=== PATIENT | male | born 1935 | race Caucasian/White ===

== ENCOUNTER 2019-07-17 15:24 | Inpatient (IN) ==
[2019-07-17] MEDS ORDERED: ENOXAPARIN 30 MG/0.3 ML SYRINGE SUBCUT SCH (16:30)
[2019-07-17] MEDS ORDERED: PROMETHAZINE 25 MG TABLET PO PRN (16:30)
[2019-07-17] MEDS ORDERED: ZALEPLON 5 MG CAPSULE PO PRN (16:30)
[2019-07-17] MEDS ORDERED: guaiFENesin/DM ER 600-30 MG TABLET PO PRN (16:30)
[2019-07-17] MEDS ORDERED: DOCUSATE SODIUM 100 MG CAPSULE PO PRN (16:30)
[2019-07-17] MEDS ORDERED: ACETAMINOPHEN 325 MG TABLET PO PRN (16:30)
[2019-07-17] MEDS ORDERED: LACTULOSE 20 GM/30 ML UDCUP PO PRN (16:30)
[2019-07-17] MEDS ORDERED: POTASSIUM CHLORIDE 20 MEQ TABLET PO PRN (16:30)
[2019-07-17] MEDS ORDERED: diphenhydrAMINE CAP 25 MG CAPSULE PO PRN (16:30)
[2019-07-17] MEDS ORDERED: MAGNESIUM SULF RIDER 2 GM in PREMIX 1 EACH IV PRN (16:30)
[2019-07-17] MEDS ORDERED: ONDANSETRON 4 MG/2 ML VIAL IV PRN (16:30)
[2019-07-17] MEDS ORDERED: MAGNESIUM SULF RIDER 4 GM in PREMIX 1 EACH IV PRN (16:30)
[2019-07-17] MEDS ORDERED: DIGOXIN 0.5 MG/2 ML AMP IV ONE (17:12)
[2019-07-17] MEDS ORDERED: METOPROLOL TARTRATE 5 MG/5 ML VIAL IV ONE (17:25)
[2019-07-17] MEDS ORDERED: SODIUM CHLORIDE 0.9% 1,000 ML IV SCH (17:30)
[2019-07-17 17:53] LABS: Basophils % 0.6 % (0.0-0.8); Eosinophils # 0.1 10*3/uL (0.0-0.87); Eosinophils % 1.9 % (0.00-10.9); Hematocrit 32.3 VOL% (42.0-52.0); Hemoglobin 10.6 GM/DL (14.0-18.0); Immature Granulocytes % 0.6 %; Immature Granulocytes Absolute 0.03 #; Lymphocytes # 1.6 10*3/uL (1.4-4.0); Lymphocytes % 33.1 % (21.2-54.2); Mean Corpuscular HGB Conc 32.8 GM/DL (32-36); Mean Corpuscular Volume 100.9 FL (87-102); Mean Platelet Volume 13.6 FL (9.6-12.0); Monocytes % 12.1 % (1.7-12.7); Neutrophils % 51.7 % (38.7-73.9); Platelet Count 93 T/CUMM (130-400); Red Cell Distribution Width 13.3 % (9.3-17.3); White Blood Count 4.9 T/CUMM (4-12)
[2019-07-17 17:58] LABS: Alanine Aminotransferase < 9 U/L (16-61); Albumin 3.4 G/DL (3.4-5.0); Alkaline Phosphatase 42 U/L (45-117); Aspartate Amino Transferase 11 U/L (0-37); Bilirubin,Total < 0.39 MG/DL (0.2-1.0); Blood Urea Nitrogen 29 MG/DL (7-18); Estimated Glom Filtration Rate 63 ML/MIN; Glucose 94 MG/DL (74-106); HDL Cholesterol 30 MG/DL (40-60); Osmolality,Calculated 291.8 MOS/KG (273-304); Risk Ratio 3.43; Thyroid Stimulating Hormone 0.352 uIU/ml (0.358-3.74); Total Protein 6.7 G/DL (6.4-8.3); Triglycerides 67 MG/DL (2-150); VLDL CHOLESTEROL 13.4 MG/DL
[2019-07-17 18:11] LABS: Troponin I 0.018 NG/ML (0.00-0.045)
[2019-07-17] MEDS ORDERED: PNEUMOCOCCAL VACCINE (13 VALENT) 0.5 ML SYRINGE IM ONE (18:29)
[2019-07-17] MEDS: POTASSIUM CHLORIDE 10 MEQ TABLET PO SCH (19:31)
[2019-07-17] MEDS: FINASTERIDE 5 MG TABLET PO SCH (22:15)
[2019-07-17] MEDS: TAMSULOSIN 0.4 MG CAPSULE PO SCH (22:15)
[2019-07-17] MEDS: ASPIRIN 325 MG TABLET PO SCH (22:15)
[2019-07-17] MEDS: ENOXAPARIN 40 MG/0.4 ML SYRINGE SUBCUT SCH (22:15)
[2019-07-17] MEDS: GEMFIBROZIL 600 MG TABLET PO SCH (22:15)
[2019-07-17] MEDS: CHOLECALCIFEROL 5,000 UNIT TABLET PO SCH (22:15)
[2019-07-18] MEDS: SOTALOL 80 MG TABLET PO SCH ×3 (00:44→20:40)
[2019-07-18] MEDS: METOPROLOL TARTRATE 25 MG TABLET PO SCH ×3 (00:44→20:41)
[2019-07-18] MEDS: ALBUTEROL/IPRATROPIUM 3 ML NEB RESP TX SCH ×4 (00:53→18:58)
[2019-07-18 04:06] LABS: Basophils % 0.7 % (0.0-0.8); Eosinophils # 0.2 10*3/uL (0.0-0.87); Eosinophils % 3.9 % (0.00-10.9); Hematocrit 29.6 VOL% (42.0-52.0); Hemoglobin 9.7 GM/DL (14.0-18.0); Immature Granulocytes % 0.5 %; Immature Granulocytes Absolute 0.02 #; Lymphocytes # 1.6 10*3/uL (1.4-4.0); Lymphocytes % 37.8 % (21.2-54.2); Mean Corpuscular HGB Conc 32.8 GM/DL (32-36); Mean Platelet Volume 12.9 FL (9.6-12.0); Monocytes % 13.2 % (1.7-12.7); Neutrophils % 43.9 % (38.7-73.9); Red Blood Count 2.96 MC/CUMM (3.8-5.5); Red Cell Distribution Width 13.1 % (9.3-17.3); White Blood Count 4.3 T/CUMM (4-12)
[2019-07-18 04:08] LABS: Platelet Count 93 T/CUMM (130-400)
[2019-07-18 04:20] LABS: Calcium 8.6 MG/DL (8.5-10.1)
[2019-07-18 05:03] LABS: Hypochromasia 1+; Ovalocytes Few
[2019-07-18 05:04] LABS: Acanthocytes Few; Microcytosis 1+; Target Cells Slight
[2019-07-18 05:05] LABS: Platelet Estimate Decreased
[2019-07-18] MEDS: LEVOTHYROXINE 75 MCG TABLET PO SCH (06:27)
[2019-07-18] MEDS ORDERED: FUROSEMIDE 20 MG TABLET PO SCH (09:00)
[2019-07-18] MEDS: PANTOPRAZOLE 40 MG TABLET PO SCH (09:05)
[2019-07-18] MEDS: GEMFIBROZIL 600 MG TABLET PO SCH ×2 (09:05→20:41)
[2019-07-18] MEDS: FUROSEMIDE 40 MG/4 ML VIAL IV SCH (09:05)
[2019-07-18] MEDS: POTASSIUM CHLORIDE 10 MEQ TABLET PO SCH (09:05)
[2019-07-18] MEDS: MENTHOL/ZINC OXIDE OINT 71 GM JAR TOP SCH ×2 (13:42→20:42)
[2019-07-18] MEDS ORDERED: MAGNESIUM HYDROXIDE SUSP 30 ML UDCUP PO PRN (15:12)
[2019-07-18] MEDS: CHOLECALCIFEROL 5,000 UNIT TABLET PO SCH (20:40)
[2019-07-18] MEDS: TAMSULOSIN 0.4 MG CAPSULE PO SCH (20:40)
[2019-07-18] MEDS: FINASTERIDE 5 MG TABLET PO SCH (20:40)
[2019-07-18] MEDS: ASPIRIN 325 MG TABLET PO SCH (20:40)
[2019-07-18] MEDS: ENOXAPARIN 40 MG/0.4 ML SYRINGE SUBCUT SCH (20:41)
[2019-07-19] MEDS: ALBUTEROL/IPRATROPIUM 3 ML NEB RESP TX SCH ×4 (00:16→19:59)
[2019-07-19 05:03] LABS: Calcium 8.8 MG/DL (8.5-10.1); Osmolality,Calculated 289.1 MOS/KG (273-304)
[2019-07-19] MEDS: LEVOTHYROXINE 75 MCG TABLET PO SCH (06:20)
[2019-07-19] MEDS ORDERED: ASPIRIN CHEW 81 MG TABLET PO SCH (08:54)
[2019-07-19] MEDS ORDERED: POTASSIUM CHLORIDE 20 MEQ TABLET PO ONE (08:59)
[2019-07-19] MEDS: PANTOPRAZOLE 40 MG TABLET PO SCH (09:43)
[2019-07-19] MEDS: APIXABAN 2.5 MG TABLET PO SCH ×2 (09:43→20:35)
[2019-07-19] MEDS: GEMFIBROZIL 600 MG TABLET PO SCH ×2 (09:43→20:35)
[2019-07-19] MEDS: METOPROLOL TARTRATE 25 MG TABLET PO SCH ×2 (09:43→20:35)
[2019-07-19] MEDS: MENTHOL/ZINC OXIDE OINT 71 GM JAR TOP SCH ×2 (09:44→20:36)
[2019-07-19] MEDS: FUROSEMIDE 40 MG/4 ML VIAL IV SCH (09:44)
[2019-07-19] MEDS: SOTALOL 80 MG TABLET PO SCH ×2 (09:44→20:34)
[2019-07-19] MEDS: LISINOPRIL 2.5 MG TABLET PO SCH ×2 (09:49→20:34)
[2019-07-19] MEDS: POTASSIUM CHLORIDE 10 MEQ TABLET PO SCH (12:05)
[2019-07-19] MEDS: FINASTERIDE 5 MG TABLET PO SCH (20:34)
[2019-07-19] MEDS: CHOLECALCIFEROL 5,000 UNIT TABLET PO SCH (20:35)
[2019-07-19] MEDS: TAMSULOSIN 0.4 MG CAPSULE PO SCH (20:35)
[2019-07-20] MEDS: ALBUTEROL/IPRATROPIUM 3 ML NEB RESP TX SCH ×2 (00:21→08:00)
[2019-07-20 03:56] LABS: Apearance,Urine CLEAR (Clear); Bilirubin,Urine Negative (Negative); Blood, Urine Negative (Negative); Glucose,Urine (UA) Negative (Negative); Hyaline Casts,Urine 7 /LPF (0-3); Ketones,Urine Negative (Negative); Mucus,Urine Occasional /LPF (Occasional); Nitrite,Urine Negative (Negative); Protein,Urine Negative; RBC,Urine 1 /HPF (0-4); Squamous Epithelial Cell,Urine Occasional /HPF (0-10); Urine Color Yellow (Yellow); Urine Specific Gravity 1.011 (1.001-1.035); Urine Urobilinogen < 2.0 EU/DL (0.2-1.0); WBC,Urine 1 /HPF (0-6)
[2019-07-20 06:03] LABS: Osmolality,Calculated 292.1 MOS/KG (273-304)
[2019-07-20] MEDS: LEVOTHYROXINE 75 MCG TABLET PO SCH (06:31)
[2019-07-20] MEDS: GEMFIBROZIL 600 MG TABLET PO SCH (09:30)
[2019-07-20] MEDS: SOTALOL 80 MG TABLET PO SCH (09:30)
[2019-07-20] MEDS: METOPROLOL TARTRATE 25 MG TABLET PO SCH (09:30)
[2019-07-20] MEDS: APIXABAN 2.5 MG TABLET PO SCH (09:30)
[2019-07-20] MEDS: POTASSIUM CHLORIDE 10 MEQ TABLET PO SCH (09:30)
[2019-07-20] MEDS: PANTOPRAZOLE 40 MG TABLET PO SCH (09:31)
[2019-07-20 12:14] VITALS: BP 130/58
[2019-07-21] MEDS ORDERED: FUROSEMIDE 40 MG TABLET PO SCH (09:00)
== END 2019-07-20 13:19 | DRG 308 ==
LOC: EDBD → EDUNIT# → N.ED 15:24 → N.EDINP 16:30 → N.TELEN 17:28
PROVIDERS: ADMIT Internal Medicine Cardiovascular Disease; ATTEND Internal Medicine Cardiovascular Disease

== ENCOUNTER 2020-05-13 17:38 | Inpatient (IN) ==
[2020-05-13] MEDS ORDERED: DEXTROSE 50% 25 GM/50 ML VIAL IV PRN (21:44)
[2020-05-13] MEDS ORDERED: GLUCAGON 1 MG VIAL IM PRN (21:44)
[2020-05-13] MEDS ORDERED: ONDANSETRON 4 MG/2 ML VIAL IV PRN (21:44)
[2020-05-13] MEDS ORDERED: ACETAMINOPHEN 325 MG TABLET PO PRN (21:44)
[2020-05-13 22:15] LABS: Basophils % 0.6 % (0.0-0.8); Eosinophils # 0.1 10*3/uL (0.0-0.87); Eosinophils % 2.7 % (0.00-10.9); Hematocrit 30.7 VOL% (42.0-52.0); Hemoglobin 10.1 GM/DL (14.0-18.0); Immature Granulocytes % 0.4 %; Immature Granulocytes Absolute 0.02 #; Lymphocytes # 1.7 10*3/uL (1.4-4.0); Lymphocytes % 35.9 % (21.2-54.2); Mean Corpuscular HGB Conc 32.9 GM/DL (32-36); Mean Corpuscular Volume 102.7 FL (87-102); Mean Platelet Volume 12.1 FL (9.6-12.0); Monocytes % 13.5 % (1.7-12.7); Neutrophils % 46.9 % (38.7-73.9); Platelet Count 139 T/CUMM (130-400); Red Blood Count 2.99 MC/CUMM (3.8-5.5); Red Cell Distribution Width 13.2 % (9.3-17.3); White Blood Count 4.7 T/CUMM (4-12)
[2020-05-13] MEDS: ENOXAPARIN 100 MG/ML SYRINGE SUBCUT SCH (22:36)
[2020-05-13] MEDS: ATORVASTATIN 40 MG TABLET PO SCH (22:36)
[2020-05-13 23:01] LABS: Alanine Aminotransferase 10 U/L (16-61); Albumin 3.3 G/DL (3.4-5.0); Alkaline Phosphatase 60 U/L (45-117); Aspartate Amino Transferase 20 U/L (0-37); Bilirubin,Total < 0.39 MG/DL (0.2-1.0); Blood Urea Nitrogen 23 MG/DL (7-18); Calcium 9.3 MG/DL (8.5-10.1); Estimated Glom Filtration Rate 69 ML/MIN; Glucose 105 MG/DL (74-106); Osmolality,Calculated 284.3 MOS/KG (273-304); Total Protein 6.9 G/DL (6.4-8.3)
[2020-05-14 03:32] LABS: Calcium 9.3 MG/DL (8.5-10.1); Osmolality,Calculated 282.4 MOS/KG (273-304); Risk Ratio 4.03; Thyroid Stimulating Hormone 3.13 uIU/ml (0.358-3.74); VLDL CHOLESTEROL 14.6 MG/DL
[2020-05-14 04:41] LABS: Basophils % 0.4 % (0.0-0.8); Eosinophils # 0.2 10*3/uL (0.0-0.87); Eosinophils % 3.1 % (0.00-10.9); Hematocrit 29.5 VOL% (42.0-52.0); Hemoglobin 9.7 GM/DL (14.0-18.0); Immature Granulocytes % 0.4 %; Immature Granulocytes Absolute 0.02 #; Lymphocytes # 1.7 10*3/uL (1.4-4.0); Lymphocytes % 35.2 % (21.2-54.2); Mean Corpuscular HGB Conc 32.9 GM/DL (32-36); Mean Platelet Volume 12.2 FL (9.6-12.0); Monocytes % 15.4 % (1.7-12.7); Neutrophils % 45.5 % (38.7-73.9); Platelet Count 125 T/CUMM (130-400); Red Blood Count 2.92 MC/CUMM (3.8-5.5); Red Cell Distribution Width 13.1 % (9.3-17.3); White Blood Count 4.8 T/CUMM (4-12)
[2020-05-14 09:21] LABS: Apearance,Urine Clear (Clear); Bilirubin,Urine Negative (Negative); Blood, Urine Trace mg/dL (Negative); Glucose,Urine (UA) Negative (Negative); Ketones,Urine Negative (Negative); Mucus,Urine Occasional /LPF (Occasional); Nitrite,Urine Negative (Negative); Protein,Urine Negative; RBC,Urine 2 /HPF (0-4); Urine Color Yellow (Yellow); Urine Urobilinogen < 2.0 EU/DL (0.2-1.0)
[2020-05-14] MEDS: ENOXAPARIN 100 MG/ML SYRINGE SUBCUT SCH ×2 (10:00→21:13)
[2020-05-14] MEDS: SOTALOL 80 MG TABLET PO SCH ×3 (10:00→21:13)
[2020-05-14] MEDS: ASPIRIN EC 81 MG TABLET PO SCH (10:00)
[2020-05-14] MEDS: METOPROLOL TARTRATE 25 MG TABLET PO SCH ×3 (10:00→21:13)
[2020-05-14] MEDS ORDERED: DIAZEPAM 5 MG TABLET PO ONE (10:26)
[2020-05-14] MEDS ORDERED: POTASSIUM CHLORIDE RIDER 10 MEQ in PREMIX 1 EACH IV PRN (10:26)
[2020-05-14] MEDS ORDERED: MAGNESIUM SULF RIDER 2 GM in PREMIX 1 EACH IV PRN (10:26)
[2020-05-14] MEDS ORDERED: diphenhydrAMINE CAP 25 MG CAPSULE PO ONE (10:26)
[2020-05-14] MEDS ORDERED: LIDOCAINE 1% 20 ML VIAL ONE (10:33)
[2020-05-14] MEDS ORDERED: HEPARIN/NACL 0.9% 2 UNITS/ML 1,000 ML IV ONE (10:33)
[2020-05-14] MEDS: SODIUM CHLORIDE 0.9% 1,000 ML IV SCH ×4 (10:35→23:00)
[2020-05-14] MEDS ORDERED: HYDROmorphone 2 MG/1 ML VIAL ONE (11:03)
[2020-05-14] MEDS ORDERED: MIDAZOLAM 2 MG/2 ML VIAL ONE (11:03)
[2020-05-14] MEDS: TAMSULOSIN 0.4 MG CAPSULE PO SCH (13:54)
[2020-05-14] MEDS: FINASTERIDE 5 MG TABLET PO SCH (13:54)
[2020-05-14] MEDS: PANTOPRAZOLE 40 MG TABLET PO SCH (13:54)
[2020-05-14] MEDS ORDERED: hydrALAZINE 20 MG/1 ML VIAL IV PRN (14:41)
[2020-05-14] MEDS: ATORVASTATIN 40 MG TABLET PO SCH (21:13)
[2020-05-15 05:38] LABS: Basophils % 0.3 % (0.0-0.8); Eosinophils # 0.1 10*3/uL (0.0-0.87); Eosinophils % 1.5 % (0.00-10.9); Hematocrit 28.8 VOL% (42.0-52.0); Hemoglobin 9.5 GM/DL (14.0-18.0); Immature Granulocytes % 0.3 %; Immature Granulocytes Absolute 0.02 #; Lymphocytes # 1.1 10*3/uL (1.4-4.0); Lymphocytes % 19.6 % (21.2-54.2); Mean Corpuscular Volume 102.5 FL (87-102); Mean Platelet Volume 12.6 FL (9.6-12.0); Neutrophils % 66.3 % (38.7-73.9); Platelet Count 104 T/CUMM (130-400); Red Blood Count 2.81 MC/CUMM (3.8-5.5); White Blood Count 5.8 T/CUMM (4-12)
[2020-05-15 06:00] LABS: Osmolality,Calculated 283.1 MOS/KG (273-304)
[2020-05-15] MEDS: SODIUM CHLORIDE 0.9% 1,000 ML IV SCH (07:17)
[2020-05-15] MEDS: FINASTERIDE 5 MG TABLET PO SCH (09:35)
[2020-05-15] MEDS: SOTALOL 80 MG TABLET PO SCH (09:35)
[2020-05-15] MEDS: PANTOPRAZOLE 40 MG TABLET PO SCH (09:36)
[2020-05-15] MEDS: ENOXAPARIN 100 MG/ML SYRINGE SUBCUT SCH (09:36)
[2020-05-15] MEDS: METOPROLOL TARTRATE 25 MG TABLET PO SCH (09:36)
[2020-05-15] MEDS: ASPIRIN EC 81 MG TABLET PO SCH (09:36)
[2020-05-15] MEDS: TAMSULOSIN 0.4 MG CAPSULE PO SCH (09:36)
[2020-05-15 12:40] VITALS: BP 126/51
== END 2020-05-15 12:00 | disposition home health service (06) | DRG 281 ==
LOC: N.TELEN
PROVIDERS: ADMIT Internal Medicine; ATTEND Internal Medicine